=== PATIENT | female | born 1960 | race Caucasian/White ===

== ENCOUNTER → 2018-08-10 | Outpatient (CLI) | payer OTHER ==
[~2018-08-10] MED LIST: ASPIR 8181 MG PO; ATENOLOL100 MG PO; ATIVAN1 MG PO; CRESTOR10 MG PO; ENTERAGAM PO; GLIPIZIDE10 MG PO; IBUPROFEN PO; KAOPECTATE PO; METFORMIN HCL1000 M1 PO; PANTOPRAZOLE SO40 MG PO; PLAVIX75 MG PO; RAMIPRIL5 MG PO; TUSSIN DM PO; VIIBRYD40 MG PO
--- NOTE | 2018-08-10 18:03 | Diagnostic Imaging Report ---
EXAM: CT Chest WITHOUT contrast 08/10/2018 5:16 PM INDICATION: Smoker. History of lung nodules. COMPARISON: 07/02/2014. TECHNIQUE: Chest was scanned utilizing a multidetector helical scanner from the lung apex through the level of the adrenal glands without administration of IV contrast. Absence of intravenous contrast decreases sensitivity for detection of lymphadenopathy and vascular pathology. Coronal and sagittal reformations were obtained. Routine protocol was performed. IV CONTRAST: None RADIATION DOSE: Total DLP: 239.05 mGy*cm Estimated effective dose: (DLP x 0.014 x size factor) mSv COMPLICATIONS: None FINDINGS: LINES/ TUBES: None. LUNGS AND AIRWAYS: Mild biapical paraseptal emphysematous changes. Mild bilateral upper lobe pleural parenchymal scarring associated with traction bronchiectasis. Scarring with focal bronchiectasis is also present in the left lung base and lingula, somewhat more pronounced than on the prior examination. Mild peripheral honeycombing. 3 mm pleural-based nodule in the left lung base posterolaterally on image 63 is stable. Unchanged 6 mm pulmonary lymph node in the right middle lobe on image 61 series 3. PLEURA: The pleural spaces are clear. HEART AND MEDIASTINUM: The thyroid gland is normal. No mediastinal, hilar or axillary lymphadenopathy. The heart is normal in size.. There is no pericardial effusion. There are mild atherosclerotic calcifications in the aorta and coronary arteries. The main pulmonary artery measures 3.4 cm in diameter. UPPER ABDOMEN: Limited non-contrast views of the upper abdomen show is post cholecystectomy. Hepatic steatosis. The adrenal glands are normal. BONES: Lower thoracic DISH. SOFT TISSUES: Unremarkable. IMPRESSION: 1. Mild interval increase in multifocal pleural parenchymal scarring with traction bronchiectasis and mild honeycombing, suggesting interstitial lung disease pattern. 2. Mild biapical paraseptal emphysema. No suspicious pulmonary nodules. 3. Mildly to moderately dilated central pulmonary arteries, suggesting the presence of pulmonary hypertension. Signed by: Dr. Crescencio Baptiste M.D. on 08/10/2018 5:59 PM
== END ==
LOC: CT 17:04
PROVIDERS: ATTEND Family Medicine
DX: R91.8 Other nonspecific abnormal finding of lung field (principal); F17.210 Nicotine dependence, cigarettes, uncomplicated
CPT/HCPCS: 71250

== ENCOUNTER → 2020-10-22 | Outpatient (CLI) | payer BC | LOC: MAMMO 08:21 | PROVIDERS: ATTEND Family Medicine | DX: Z12.31 Encounter for screening mammogram for malignant neoplasm of breast (principal) | CPT/HCPCS: 77067 ==